=== PATIENT | male | born 1945 | race Caucasian/White ===

== ENCOUNTER 2017-02-02 08:08 | Day surgery (SDC) | payer MEDICARE, BC ==
[~2017-02-02] VITALS: Ht 185.4 cm; Wt 94.9 kg
== END 2017-02-02 11:35 | disposition home or self-care (01) ==
LOC: RAD.S 08:08
PROC: 07DR3ZX Extraction of Iliac Bone Marrow, Percutaneous Approach, Diagnostic (ICD-10-PCS; principal; 2017-02-02)
DX: D47.3 Essential (hemorrhagic) thrombocythemia (principal); D64.9 Anemia, unspecified